=== PATIENT | female | born 1965 | race Caucasian/White ===

== ENCOUNTER 2022-11-16 14:36 | Outpatient (CLI) | payer OTHER, SELFPAY ==
--- NOTE | ~2022-11-16 | XR_ITS ---
EXAM: XR hand RT min 3V DATE: 11/16/2022 14:52 HISTORY: S62.316A -fX of base of fifth metacarpal 09/26. recent pain . COMPARISON: None available. FINDINGS: Normal mineralization. Apparently healed oblique fracture of the proximal right fifth meta carpal, with mild posterior and medial displacement. Likely healed ulnar styloid fracture. No new acu te fracture or dislocation. No lytic or blastic lesion. Mild scattered degenerative change. No erosio n or periosteal change. Soft tissues within normal limits. IMPRESSION: Oblique proximal right fifth metacarpal fracture, apparently healed in mild deformity. Li irina healed ulnar styloid fracture. Comparison to outside studies would be helpful. Reviewed, dictated and finalized at location K. IMPRESSION: Oblique proximal right fifth metacarpal fracture, apparently healed in mild deformity. Likely healed ulnar styloid fracture. Comparison to outside studies would be helpful.
== END 2022-11-16 14:37 | disposition home or self-care (01) ==
PROVIDERS: PCP Internal Medicine; Visit Provider Plastic Surgery
DX: G56.20 Lesion of ulnar nerve, unspecified upper limb (principal); S62.316A Displaced fracture of base of fifth metacarpal bone, right hand, initial encounter for closed fracture; X58.XXXA Exposure to other specified factors, initial encounter
CPT/HCPCS: 73130

== ENCOUNTER 2022-11-26 12:45 | Outpatient (CLI) | payer OTHER, SELFPAY ==
--- NOTE | ~2022-11-26 | CT_ITS ---
EXAMINATION: CT wrist RT wo/w con DATE: 11/26/2022 13:28 INDICATION: Fracture of right fifth metacarpal. TECHNIQUE: Computed tomography (CT) of the right wrist was performed without and with 100 mL Omnipaqu e 350 intravenous contrast. Automated exposure control and iterative reconstruction technique were em ployed. The dose-length product was 664.00 mGy-cm. COMPARISON: Right hand radiographs 11/16/2022 FINDINGS: Bone alignment is normal. No acute fracture. There is a healed extra-articular fracture def ormity of base of fifth metacarpal with 2 mm ulnar displacement of the distal bone relative to the pr oximal bone. There is mild osteoarthritis of distal radioulnar joint and triscaphe joint characterize d by tiny osteophytes. IMPRESSION: 1. Healed fracture deformity of fifth metacarpal. 2. Mild polyarticular osteoarthritis. Reviewed, dictated and finalized at location A.
== END 2022-11-26 12:46 | disposition home or self-care (01) ==
PROVIDERS: PCP Internal Medicine; Visit Provider Plastic Surgery
DX: G56.20 Lesion of ulnar nerve, unspecified upper limb (principal); M19.031 Primary osteoarthritis, right wrist; S62.316D Displaced fracture of base of fifth metacarpal bone, right hand, subsequent encounter for fracture with routine healing; X58.XXXD Exposure to other specified factors, subsequent encounter
CPT/HCPCS: 73202; Q9967

== ENCOUNTER 2022-12-28 09:45 | Outpatient (CLI) | payer OTHER, SELFPAY ==
--- NOTE | 2022-12-28 11:00 | NEURO_ITS ---
Impression: # Non-diabetic complains of right wrist pain. # No Carpal Tunnel Syndrome or ulnar neuropathy. # Normal needle/EMG exam. # Clinical correlation recommended. Nerve Conduction Studies Anti Sensory Summary Table Stim Site NR Peak (ms) P-T Amp (?V) Site1 Site2 Delta-P (ms) Dist (cm) William (m/s) Right Median Anti Sensory (2-3nd Digit) Wrist 2.3 90.0 Wrist 2-3nd Digit 2.3 14.0 61 Wrist 2.4 89.4 Wrist 2-3nd Digit 2.3 14.0 61 Right Radial Anti Sensory (Base 1st Digit) Wrist 2.0 50.7 Wrist Base 1st Digit 2.0 0.0 Right Ulnar Anti Sensory (5th Digit) Wrist 2.2 90.0 Wrist 5th Digit 2.2 14.0 64 Motor Summary Table Stim Site NR Onset (ms) O-P Amp (mV) Site1 Site2 Delta-0 (ms) Dist (cm) William (m/s) Right Median Motor (Abd Poll Brev) Wrist 2.5 10.8 Elbow Wrist 3.8 23.0 61 Elbow 6.3 7.9 Right Ulnar Motor (Abd Dig Minimi) Wrist 2.1 8.4 A Elbow Wrist 4.1 24.0 59 A Elbow 6.2 5.6 F Wave Studies NR F-Lat (ms) L-R F-Lat (ms) Right Median (Mrkrs) (Abd Poll Brev) 23.69 Right Ulnar (Mrkrs) (Abd Dig Min) 24.14 EMG Side Muscle Nerve Root Ins Act Fibs Amp Dur Recrt Comment Right 1stDorInt Ulnar C8-T1 Nml Nml Nml Nml Nml Right Ext Indicis Radial (Post Int) C7-8 Nml Nml Nml Nml Nml Right Ext Digitorum Radial (Post Int) C7-8 Nml Nml Nml Nml Nml Right BrachioRad Radial C5-6 Nml Nml Nml Nml Nml Right PronatorTeres Median C6-7 Nml Nml Nml Nml Nml Right Abd Poll Brev Median C8-T1 Nml Nml Nml Nml Nml MTDD
== END 2022-12-28 09:46 | disposition home or self-care (01) ==
PROVIDERS: PCP Internal Medicine; Visit Provider Plastic Surgery
DX: G56.21 Lesion of ulnar nerve, right upper limb (principal)
CPT/HCPCS: 95886; 95909

== ENCOUNTER 2023-02-22 15:10 | Outpatient (CLI) | payer OTHER, SELFPAY ==
--- NOTE | 2023-02-22 15:24 | ECG_ITS ---
Measurements Intervals [place] Rate: 68 P: 67 TN: 140 QRS: 52 QRSD: 84 T: 46 QT: 364 QTc: 389 Interpretive Statements SINUS RHYTHM NORMAL ECG NO PREVIOUS ECG AVAILABLE FOR COMPARISON Electronically Signed On 02-23-2023 15:29:04 COPS by Ghassan Velasquez M.D.
== END 2023-02-22 15:11 | disposition home or self-care (01) ==
PROVIDERS: PCP Internal Medicine; Visit Provider Anesthesiology
DX: E78.5 Hyperlipidemia, unspecified (principal); F17.200 Nicotine dependence, unspecified, uncomplicated; Z01.818 Encounter for other preprocedural examination
CPT/HCPCS: 93005

== ENCOUNTER 2023-02-24 07:41 | Day surgery (SDC) | payer OTHER, SELFPAY ==
[2023-02-08 13:09] VITALS: BMI 25.8
--- NOTE | 2023-02-23 08:10 | WPDANESEPPF ---
Anes - Initial Pre Proc Eval Procedure: Operation Date: 02/24/23 10:45 Proposed Procedures p Excision Bone Spur Right Fifth Metacarpal and Extensor Carpi Ulnaris Insertion Debridement - Walt Sims MD Date/Time: 02/23/23 08:10 Surgeon: Walt Sims MD Pre Op Diagnosis: Pain of Hand Patient Data Age: 57 Gender: F Height: 1.47 m Weight: 56 kg Allergies Allergy/AdvReac Type Severity Reaction Status Date / Time No Known Allergies Allergy Verified 02/08/23 13:08 Home Medications Medication Instructions Recorded Confirmed Type alprazolam 0.5 mg tablet 0.5 mg PO TID PRN Anxiety 02/08/23 02/08/23 History atorvastatin 20 mg tablet 20 mg PO HS 02/08/23 02/08/23 History duloxetine 60 mg capsule,delayed 60 mg PO HS 02/08/23 02/08/23 History release ropinirole 0.5 mg tablet 0.5 mg PO HS 02/08/23 02/08/23 History Results Review: All pre-operative results and documents have been reviewed as part of the pre-operative evaluation. [facility] Past Medical History Medical History (Updated 02/23/23 @ 08:11 by Ramiro Lala DO) Depression Hyperlipidemia Surgical History Surgical History (Updated 02/23/23 @ 08:11 by Ramiro Lala DO) History of appendectomy History of tonsillectomy Social History Social History (Updated 11/16/22 @ 13:53 by Christiana Tipton MA) Smoking packs per day: 1 Smoking cigarettes per day: 20.0 Years smoked: 40 Smoking pack-years: 40.00 Smoking status: Current every day smoker Tobacco type: cigarettes Second hand tobacco smoke exposure: Yes Alcohol intake: never Substance use: never Substance use type: does not use Living arrangements: alone Spiritual care concerns: No Anes - Eval Final PreProcedure Day of Procedure 02/23/23 08:10 Patient weight: overweight Heart: regular rate and rhythm Lungs: clear to auscultation Airway: Mallampati scale class II Neurological: alert and oriented Last oral intake: >/= 8 hours ASA classification: III Emergent: no Anesthetic plan: proceed Anesthesia type and monitoring: general LMA and standard monitoring Results Review: All pre-operative results and documents have been reviewed as part of the pre-operative evaluation. Informed Consent: The patient's anesthetic plan and its attendant risks and benefits were discussed with the patient/family/POA. Questions were solicited and answers provided to the satisfaction of the patient/family/POA.
[2023-02-24] VITALS (9 sets, daily range): BP systolic 82–114; BP diastolic 44–78; PULSE 63–74; RESP 12–21; TEMP 36.2–36.8; O2SAT 91–100; BMI 26.3
--- NOTE | ~2023-02-24 | XR_ITS ---
EXAMINATION: XR surgery orthopedic DATE: 02/24/2023 10:30 FORM RAISER INDICATION: EXCISION BONE SPUR RIGHT 5TH METACARPAL . TECHNIQUE: 2 fluoroscopic images of the right hand were obtained during right fifth metacarpal bone s pur excision performed by the surgeon. I was not present in the operating room. Fluoroscopy exposure time was 8 seconds. Air Kerma 0.0377 mGy. DAP 0.6340 mGym2. COMPARISON: None FINDINGS: Frontal and lateral views demonstrate bone spur excision with replacement of a small screw in the pro ximal fifth metacarpal. IMPRESSION: Fluoroscopic documentation of right fifth metacarpal bone spur excision. Please refer to the operativ e note for complete procedural details . Reviewed, dictated and finalized at location K. RAISER IMPRESSION: Fluoroscopic documentation of right fifth metacarpal bone spur excision. Please refer to the operative note for complete procedural details .
--- NOTE | 2023-02-24 09:52 | WPDANESEPPF ---
Anes - Initial Pre Proc Eval Procedure: Operation Date: 02/24/23 10:45 Proposed Procedures p Excision Bone Spur Right Fifth Metacarpal and Extensor Carpi Ulnaris Insertion Debridement - Walt Sims MD Date/Time: 02/24/23 09:52 Surgeon: Walt Sims MD Pre Op Diagnosis: Pain of Hand Patient Data Age: 57 Gender: F Height: 1.47 m Weight: 57.2 kg Last Vital Signs Temp 36.8 C 02/24/23 09:46 Pulse 74 02/24/23 09:46 Resp 16 02/24/23 09:46 BP 107/78 02/24/23 09:46 Pulse Ox 96 02/24/23 09:46 O2 Del Method Room Air 02/24/23 09:46 Allergies Allergy/AdvReac Type Severity Reaction Status Date / Time No Known Allergies Allergy Verified 02/24/23 09:34 Home Medications Medication Instructions Recorded Confirmed Type alprazolam 0.5 mg tablet 0.5 mg PO TID PRN Anxiety 02/08/23 02/24/23 History atorvastatin 20 mg tablet 20 mg PO HS 02/08/23 02/24/23 History duloxetine 60 mg capsule,delayed 60 mg PO HS 02/08/23 02/24/23 History release ropinirole 0.5 mg tablet 0.5 mg PO HS 02/08/23 02/24/23 History Patient hx anesthesia problems: other (slow to awaken) Family hx anesthesia problems: none Results Review: All pre-operative results and documents have been reviewed as part of the pre-operative evaluation. [facility] Past Medical History Medical History Depression Hyperlipidemia Surgical History Surgical History History of appendectomy History of tonsillectomy Social History Social History Smoking packs per day: 1 Smoking cigarettes per day: 20.0 Years smoked: 40 Smoking pack-years: 40.00 Smoking status: Current every day smoker Tobacco type: cigarettes Second hand tobacco smoke exposure: Yes Alcohol intake: never Substance use: never Substance use type: does not use Living arrangements: alone Spiritual care concerns: No Anes - Eval Final PreProcedure Day of Procedure 02/24/23 09:52 Patient weight: overweight Heart: regular rate and rhythm Lungs: decreased breath sounds Airway: Mallampati scale class II Neurological: alert and oriented Last oral intake: >/= 8 hours ASA classification: III Emergent: no Anesthetic plan: proceed Anesthesia type and monitoring: general GIVS and standard monitoring Results Review: All pre-operative results and documents have been reviewed as part of the pre-operative evaluation. Informed Consent: The patient's anesthetic plan and its attendant risks and benefits were discussed with the patient/family/POA. Questions were solicited and answers provided to the satisfaction of the patient/family/POA.
[2023-02-24] MEDS: LACTATED RINGERS 1,000 ML 30 ML IV CONT (10:09)
[2023-02-24] MEDS: ceFAZolin 2 GM/D5W 50 ML 2 GM/50 ML BAG IVPB (10:40)
[2023-02-24] MEDS: LIDO 1%/EPINEPHRINE 1:100,000 20 ML VIAL 5 ML INFILTRATE (10:45)
[2023-02-24] MEDS: BETAMETHASONE SODIUM PHOSPHATE PF INJ 6 MG/ML VIAL INFILTRATE (11:26)
--- NOTE | 2023-02-24 11:26 | W.PM.PROC2 ---
Procedure Note - Detailed Date of Procedure 02/24/23 Pre-op Diagnosis malunon right 5th mc base fracture and pain Post-op Diagnosis Same Procedure Performed right 5th metacarpal base osteophyte excision and extensor carpi ulnaris repair and 5th metacarpophalangeal jonit capsule steroid injection Surgeon Walt Smis MD Anesthesia MAC Description of Procedure INFORMED CONSENT: The patient was seen and examined and marked in the pre-op area.? The patient signed the consent form. PROCEDURE IN DETAIL:The patient taken back to OR on the stretcher in supine position. Time out performed with anesthesia, surgeon and staff agreeing on patient's name site and surgery to be performed SCDs were placed on the lower extremities and inflated. A tourniquet was placed on {right} upper extremity and antibiotics given IV After anesthesia administered sedation I injected {5}cc 1%lido with epi and 0.5% marcaine plain at the operative site The?{right upper extremity}?was prepped and draped in sterile fashion the??{right upper extremity} was? exsanguinated with Esmarch bandage and tourniquet inflated to 250mmHg I proceeded with making a longituidnal incision over right 5th metacarpal base through skin and dermis. Littler scissors were used to spread down to periosteum. Mini c-arm was used to confirm location and identifyosteohyte location around 5th cmc joint. 15 blade incision in periosteum and reflexion with periosteum to expose the bone spur. Rongeur osteophyte til flat and verified on mini c-arm. It was noted that the extensor carpul ulnaris was visibly frayed and partially torn ~70% around the old fracture line deformity. I placed an arthrex 2.2x4mm corkscrew anchor in the 5th metacarpal base with mini c-arm verification of palcement and both advanced and reattached the ECU to the 5th Metacarpal. I irrigated with normal saline. The periosteum was repaired with 4-0 fiberwire and skin closed with 4-0 monocryl for dermis and subcuticular A dressing of exofin, 4x4, tariq, and an ulnar gutter splint was applied for patient safety, security, and comfort and secured with an addie bandage after the tourniquet was let down noting the hand was warm and well perfused. The patient was then awaken from anesthesia and transferred to the recovery room in stable condition.? Complications - none EBL- 0cc Disposition - home in stable conditions [facility] [place], [place] Billing Surgery - Charge Forward: Surgery Billing ([id number] and [id number])
[2023-02-24] MEDS: oxyCODONE HCL (*CRX) 5 MG TAB IR PO (12:28)
--- NOTE | 2023-03-14 12:17 | WPDHPUPDATE1 ---
History and Physical Update Update Date/Time: 03/14/23 12:17 History and Physical has been reviewed, including an updated exam of the patient. There are NO changes in the patient's condition. Risks, benefits, and alternatives have been discussed and questions answered. Patient agrees to proceed with procedure.
== END 2023-02-24 13:09 | disposition home or self-care (01) ==
PROVIDERS: PCP Internal Medicine; Visit Provider Plastic Surgery
PROC: (CPT 26410; principal; 2023-02-24 10:45)
DX: M85.641 Other cyst of bone, right hand (principal); M66.241 Spontaneous rupture of extensor tendons, right hand
CPT/HCPCS: 26410; 26210; 99199

== ENCOUNTER 2023-02-24 16:45 | Outpatient (NON) | payer OTHER, SELFPAY | END 2023-02-24 16:46 | disposition home or self-care (01) | LOC: ANHLAB 16:47 | PROVIDERS: PCP Internal Medicine; Visit Provider Plastic Surgery | DX: S62.316A Displaced fracture of base of fifth metacarpal bone, right hand, initial encounter for closed fracture (principal); X58.XXXA Exposure to other specified factors, initial encounter | CPT/HCPCS: 88307; 88311 ==

== ENCOUNTER 2023-04-11 15:20 | Outpatient (CLI) | payer OTHER, SELFPAY ==
--- NOTE | ~2023-04-11 | XR_ITS ---
XR wrist RT 2V DATE: 04/11/2023 15:30 INDICATION: Displaced fracture of base of fifth metacarpal bone TECHNIQUE: AP and lateral views COMPARISON: 11/16/2022 right hand 11/26/2022 CDT right wrist FINDINGS: There is a suture anchor at the lateral aspect of the junction of the base and proximal sha ft of the fifth metacarpal bone, with old fracture deformity at this site. No recent fracture or dislocation. No periosteal reaction or bone destruction. Joint spaces appear re latively well preserved. No erosive change or chondrocalcinosis. IMPRESSION: Postoperative change and old fracture deformity of fifth metacarpal Reviewed, dictated and finalized at location B. D [employer]
== END 2023-04-11 15:21 | disposition home or self-care (01) ==
LOC: ANHIMG 15:21
PROVIDERS: PCP Internal Medicine; Visit Provider Physician Assistant Surgical
DX: S62.316D Displaced fracture of base of fifth metacarpal bone, right hand, subsequent encounter for fracture with routine healing (principal); X58.XXXD Exposure to other specified factors, subsequent encounter
CPT/HCPCS: 73100